=== PATIENT | female | born 1960 | race Caucasian/White ===

== ENCOUNTER 2022-05-18 23:42 | Emergency (ER) | payer OTHER ==
[~2022-05-18] VITALS: Ht 154.9 cm; Wt 79.4 kg
[2022-05-18 23:50] VITALS: BP_SYST 160
--- NOTE | 2022-05-18 23:50 | NUR ---
Patient triaged and placed in waiting room. VSS and patient appears in no acute distress at this time. Accompanied by fam member, awaiting available bed, and MD notified of need for MSE.
[2022-05-19 00:44] LABS: HEMOGLOBIN 12.7 g/dL (12.0-16.0)
[2022-05-19 00:50] LABS: BASOPHILS % (AUTO) 0.4 % (0.0-2.0); EOSINOPHILS # (AUTO) 0.1 K/uL (0.0-0.4); EOSINOPHILS % (AUTO) 0.6 % (0.0-4.0); LYMPHOCYTES # (AUTO) 1.1 K/uL (1.0-5.5); LYMPHOCYTES % (AUTO) 10.9 % (20.5-51.5); MEAN CORPUSCULAR HEMOGLOBIN 30 pg (27-31); MEAN CORPUSCULAR HGB CONC 35 % (32-36); MEAN CORPUSCULAR VOLUME 84 fL (79.0-98.0); MONOCYTES # (AUTO) 0.5 K/uL (0.0-1.0); MONOCYTES % (AUTO) 5.3 % (1.7-9.3); NEUTROPHILS # (AUTO) 8.6 K/uL (1.8-7.7); NEUTROPHILS % (AUTO) 82.8 % (40.0-70.0); PLATELET COUNT (AUTO) 187 K/uL (130-430); RED BLOOD CELL COUNT(AUTO) 4.29 MIL/uL (4.2-6.2); RED CELL DISTRIBUTION WIDTH 13.9 % (9.0-15.0); WHITE BLOOD COUNT (AUTO) 10.4 K/uL (4.8-10.8)
[2022-05-19 00:51] LABS: CALCIUM 9.4 mg/dL (8.4-11.0); CREATININE 0.75 mg/dL (0.55-1.30); POTASSIUM 3.5 mmol/L (3.5-5.1)
[2022-05-19 00:54] LABS: BILIRUBIN,URINE NEGATIVE (NEGATIVE); BLOOD, URINE 3+ (NEGATIVE); COLOR,URINE YELLOW (YELLOW); GLUCOSE,URINE NEGATIVE (NEGATIVE); KETONES,URINE NEGATIVE (NEGATIVE); LEUKOCYTE ESTERASE ,URINE 3+ (NEGATIVE); NITRITE, URINE NEGATIVE (NEGATIVE); PH,URINE 6.5 (5.0-8.0); PROTEIN URINE 2+ (NEGATIVE); UROBILINOGEN,URINE 0.2 (0.2-1.0)
[2022-05-19 00:57] LABS: ALBUMIN 3.7 g/dL (3.4-4.8); TOTAL BILIRUBIN 0.4 mg/dL (0.0-1.0)
--- NOTE | 2022-05-19 01:10 | NUR ---
ER examining patient in the waiting room.
--- NOTE | 2022-05-19 01:38 | NUR ---
Patient to ER bed 7 to gown for evaluation. Side rails up.
[2022-05-19 01:43] LABS: CLARITY/URINE RED (CLEAR)
[2022-05-19 01:44] LABS: BACTERIA,URINE FEW /HPF (None Seen); RBC,URINE >100 /HPF (0-3); WBC,URINE >100 /HPF (0-3)
[2022-05-19 01:45] LABS: MUCUS,URINE None Seen /LPF (None Seen)
--- NOTE | 2022-05-19 02:40 | NUR ---
pt taken to US at this time.
[2022-05-19] MEDS ORDERED: NITR-85 PO (03:05)
[2022-05-19] MEDS ORDERED: IBUP-1971 PO (03:05)
--- NOTE | 2022-05-19 03:15 | NUR ---
Patient given written and verbal discharge instructions and verbalizes understanding. ER MD discussed with patient the results and treatment provided. Patient in stable condition. ID arm band removed. no Rx of given. Patient educated on pain management and to follow up with PMD. Pain Scale 3/10. Opportunity for questions provided and answered. Medication side effect fact sheet provided.
[2022-05-19 03:19] VITALS: BP_SYST 152
== END 2022-05-19 03:15 | disposition home or self-care (01) ==
LOC: SED 23:42
DX: N93.8 Other specified abnormal uterine and vaginal bleeding (principal); D25.9 Leiomyoma of uterus, unspecified; N39.0 Urinary tract infection, site not specified; Z79.899 Other long term (current) drug therapy
CPT/HCPCS: 36415; 76856-TC; 80053; 81000; 83690; 84484; 85025; 87086; 93005; 99285